=== PATIENT | female | born 1970 | race African-American/Black ===

== ENCOUNTER → 2016-12-11 | Day surgery (SDC) | payer OTHER ==
[~2016-12-11] VITALS: Ht 167.6 cm; Wt 74.8 kg
[~2016-12-11] MED LIST: AUGMENTIN 875 M1 TAB PO; DOCUSATE SODIU100 MG PO; IBUPROFEN800 MG PO; PERCOCET 325 MG1 TA2 PO; PRENATE MINI PO
--- NOTE | 2016-12-11 12:39 | Operative Report ---
Operative/Inv Procedure Report Surgery Date: 12/11/16 Name of Procedure: Exam under anesthesia, cervical dilatation, suction and sharp curettage Pre-Operative Diagnosis: Missed AB Post-Operative Diagnosis: Same Estimated Blood Loss: less than 50ml Surgeon/Operations Intelligence: RASHEEDA KEVIN,GAY Terry Anesthesia: local monitored anesthesi Monitors: Blood pressure cuff, EKG electrodes, pulse oximeter IV Fluids: 850 ML crystalloid Implants: None Urine Output: Not measured, no catheterization Drains: none Specimens: Products of conception Microbiology: None Tourniquet: None Complications: None Condition: Good Operative Indication: 46-year-old woman with evidence of missed AB as diagnosed by serial ultrasound. Blood type O+. Patient wished surgical completion of the miscarriage Operative/Procedure Note Note: Before coming to the operating room s the patient received 1 dose of oral doxycycline for antibiotic prophylaxis. Of note she is O+ blood type and will not require Rhogam post procedure. Patient was brought to the operating room and placed on the OR table in dorsal supine position. Timeout was discussed by the team and agreed upon. Patient was placed in pneumatic compression boots. IV anesthesia was begun. After good level of anesthesia, patient was then placed in dorsal lithotomy position. Examination under anesthesia revealed a six-week sized symmetric uterus, folded 4 x 4 was removed from the vagina along with the laminaria. Adnexa nonpalpable. Patient was prepped and draped in usual sterile fashion. Speculum placed vagina, cervix was visualized. Single- tooth tenaculum was placed on the anterior lip of the cervix. Cervix was carefully dilated to a #10 Hegar dilator. Utilizing a #10 curved suction cannula, the cannula was placed past the internal os was cervix and suction was applied. Adequate products of conception is removed. Uterine curettage was performed 2 using a sharp curet. The suction cannula was reintroduced to the endocervical canal into the uterine cavity minimal residual tissue was obtained. Final sharp curettage was performed, and no further tissue or bleeding was noted. Single-tooth was removed from the cervix. Good hemostasis was noted. Exam under anesthesia revealed of 4-5 week sized symmetric uterus. No evidence of any adnexal mass. Hemostasis continued. Patient was returned to dorsal supine position awakened from anesthesia and taken recovery room good condition. Products of conception were submitted to the lab in formalin since the patient declined genetic testing of the material. She will receive 1 more dose of by mouth doxycycline following the procedure, to complete the perioperative prophylaxis with antibiotic. Gay Bernal MD ending dictation Findings: Preop exam showed a 6 week size uterus postop exam showed a 4-5 week size uterus. Adequate products of conception were obtained by suction and sharp curettage. Patient declined genetic analysis of the products of conception. Patient's blood type is Rh+ and she will not receive RhoGAM. Pre-and postop oral doxycycline was used for antibiotic prophylaxis. Discharge Disposition: PACU CC: RASHEEDA KEVIN,GAY Terry
== END ==
LOC: STS 01:21
DX: O02.1 Missed abortion (principal)
CPT/HCPCS: 88305; J1885; J2210; J2250